=== PATIENT | male | born 1980 ===

== ENCOUNTER 2021-04-28 08:49 | Day surgery (SDC) | payer OTHER ==
[~2021-04-28] VITALS: Ht 190.5 cm; Wt 114.8 kg
[2021-04-28] MEDS ORDERED: TADA10TA (09:09)
== END 2021-04-28 11:18 | disposition home or self-care (01) ==
LOC: ORSCSDS 08:49
PROVIDERS: Internal Medicine Gastroenterology
PROC: 0DBL8ZX Excision of Transverse Colon, Via Natural or Artificial Opening Endoscopic, Diagnostic (ICD-10-PCS; principal; 2021-04-28 10:00)
DX: Z12.11 Encounter for screening for malignant neoplasm of colon (principal); Z80.0 Family history of malignant neoplasm of digestive organs; D12.3 Benign neoplasm of transverse colon; K64.8 Other hemorrhoids; Z87.891 Personal history of nicotine dependence; Z79.899 Other long term (current) drug therapy
CPT/HCPCS: 88305; J2250; J2704; J7120

== ENCOUNTER 2021-11-07 17:37 | Emergency (ER) | payer OTHER ==
[~2021-11-07] VITALS: Ht 190.5 cm; Wt 117.9 kg
[~2021-11-07 17:37] MED LIST: TADA10TA
== END 2021-11-07 18:08 | disposition home or self-care (01) ==
LOC: ER 17:37
DX: R20.2 Paresthesia of skin (principal); Z87.891 Personal history of nicotine dependence; Z79.899 Other long term (current) drug therapy
CPT/HCPCS: 99283

== ENCOUNTER 2021-11-14 11:56 | Day surgery (SDC) | payer OTHER | END 2021-11-14 16:18 | disposition home or self-care (01) | LOC: ATC 11:56 | DX: R74.01 Elevation of levels of liver transaminase levels (principal); Z87.891 Personal history of nicotine dependence | CPT/HCPCS: J2930 ==

== ENCOUNTER 2021-11-15 00:09 | Day surgery (SDC) | payer OTHER | END 2021-11-15 11:07 | disposition home or self-care (01) | LOC: ATC 00:09 | DX: R74.01 Elevation of levels of liver transaminase levels (principal); Z87.891 Personal history of nicotine dependence | CPT/HCPCS: J2930 ==

== ENCOUNTER 2022-03-02 07:56 | Day surgery (SDC) | payer OTHER ==
[~2022-03-02] VITALS: Ht 190.5 cm; Wt 108.0 kg
[~2022-03-02 07:56] MED LIST changes: +MODAFINIL100 M1 PO; -TADA10TA; +TADA10TA PO
--- NOTE | 2022-03-02 08:52 | NUR ---
Ambulatory in Day Surgery Surgical site prepped with 2% Chlorhexidine cloth wipe. History, Chart, Medications and Allergies reviewed before start of procedure.Lungs clear T/O to Auscultation. Patient confirms NPO status and agrees with scheduled surgery. Pre-Op teaching done. Pt verbalizes understanding. Patient States Post-Procedure ride home has been arranged. Patient reports completing Chlorhexadine shower X2 prior to admission to hospital.
--- NOTE | 2022-03-02 12:50 | NUR ---
Dressing to procedure site clean, dry, intact with no visible drainage, swelling, erythema or bruising noted. Discharge instructions reviewed with patient. Patient verbalizes understanding. Copy given to patient to take home.
--- NOTE | 2022-03-02 13:08 | NUR ---
Discharged via wheelchair to private car for ride home.
== END 2022-03-02 13:02 | disposition home or self-care (01) ==
LOC: ORSCMMR 07:56 → ORD 09:30 → ORSCMMR 09:30
PROVIDERS: Surgery
PROC: 0WUF0JZ Supplement Abdominal Wall with Synthetic Substitute, Open Approach (ICD-10-PCS; principal; 2022-03-02 09:30)
DX: K42.9 Umbilical hernia without obstruction or gangrene (principal); F17.210 Nicotine dependence, cigarettes, uncomplicated; G47.33 Obstructive sleep apnea (adult) (pediatric); G35 Multiple sclerosis; Z79.899 Other long term (current) drug therapy
CPT/HCPCS: A9270; J0690; J1100; J1885; J2405; J2704; J3010; J7120

== ENCOUNTER 2024-01-14 09:30 | Day surgery (SDC) | payer OTHER ==
[~2024-01-14] VITALS: Ht 190.5 cm; Wt 119.4 kg
[~2024-01-14 09:30] MED LIST changes: +Lactated Ringer's 1,000 ML IV ONE; +Oxymetazoline 0.05% Nasal Relief Spray 15mL BTL ONE
[2024-01-14] MEDS ORDERED: CeFAZolin Sodium 2,000 MG VIAL ONE (09:57)
[2024-01-14] MEDS ORDERED: NS 50 ML IV ONE (09:58)
[2024-01-14] MEDS ORDERED: Lactated Ringer's 1,000 ML IV ONE (10:13)
[2024-01-14] MEDS ORDERED: propofoL 40 ML IV ONE (11:05)
[2024-01-14] MEDS ORDERED: Rocuronium Bromide 10 MG/ML 5ML Injection IV ONE (11:05)
[2024-01-14] MEDS ORDERED: FentaNYL Citrate 50 MCG/ML 2 ML Injection ONE ×2 (11:05→13:05)
[2024-01-14] MEDS ORDERED: Lidocaine 1%-Epineph 1:100000 20 ML MDV INJ ONE ×2 (11:38)
--- NOTE | 2024-01-14 11:51 | NUR ---
01/14/24 1151 Agustin Jeffers USED TO SOAK PLEDGETS FOR NASAL PACKING AT [facility].
[2024-01-14] MEDS ORDERED: Dexamethasone Sod Phos 10 MG/ML 1ML VIAL ONE (12:26)
[2024-01-14] MEDS ORDERED: Ondansetron HCl 2 MG / ML 2ML Vial ONE (12:26)
[2024-01-14] MEDS ORDERED: Metoclopramide HCl 5MG / ML 2ML Vial ONE (12:26)
[2024-01-14] MEDS ORDERED: Sugammadex Sodium 200 MG/2ML SDV (100 MG/ML) ONE (12:35)
[2024-01-14 13:55] VITALS: BP 135/89
--- NOTE | 2024-01-14 13:55 | NUR ---
01/14/24 4133 TOM VALENZUELA CHANGED SOAKED IN OOOZING BLOOD MUSTACHE DRESSING. AFRIN NASAL SPAY ADMINISTED TO BILAT NARES. NEW DRESSING APPLIED
== END 2024-01-14 14:12 | disposition home or self-care (01) ==
LOC: ORSCSDS 09:30
PROVIDERS: Otolaryngology
PROC: 09SL0ZZ Reposition Nasal Turbinate, Open Approach (ICD-10-PCS; principal; 2024-01-14 10:45)
PROC: 09BM0ZZ Excision of Nasal Septum, Open Approach (ICD-10-PCS; principal; 2024-01-14 10:45)
DX: J34.2 Deviated nasal septum (principal); J34.3 Hypertrophy of nasal turbinates; R09.81 Nasal congestion; J31.0 Chronic rhinitis; G47.33 Obstructive sleep apnea (adult) (pediatric); G35 Multiple sclerosis; Z79.899 Other long term (current) drug therapy
CPT/HCPCS: A9270; J0690; J1100; J2405; J2704; J2765; J3010; J7120